=== PATIENT | male | born 1990 | race Caucasian/White ===

== ENCOUNTER 2016-07-31 09:48 | Emergency (ER) | payer OTHER ==
[2016-07-31] MEDS ORDERED: CETIRIZINE HCL10 M1 PO (09:55)
[2016-07-31] MEDS ORDERED: IPRATROPIUM BRO15 M1 (09:56)
[2016-07-31] MEDS ORDERED: FLONASE ALLERG9.9 ML (09:56)
[2016-07-31] MEDS ORDERED: SUDAFED30 M2 PO (09:57)
[2016-07-31 10:33] LABS: URINE BILIRUBIN NEGATIVE (NEG); URINE BLOOD NEGATIVE (NEG); URINE GLUCOSE (UA) NEGATIVE (NEG); URINE KETONE NEGATIVE (NEG); URINE LEUKOCYTE ESTERASE NEGATIVE (NEG); URINE NITRITE NEGATIVE (NEG); URINE PROTEIN NEGATIVE (NEG); URINE SPECIFIC GRAVITY 1.005 (1.003-1.030)
[2016-07-31 10:35] LABS: URINE APPEARANCE CLEAR; URINE COLOR YELLOW
[2016-07-31] MEDS ORDERED: CYCLOBENZAPRINE5 M1 PO (11:32)
[2016-07-31] MEDS ORDERED: NORCO 5-325 TA1 EACH PO (11:32)
[2016-07-31] MEDS ORDERED: PREDNISONE20 M1 PO (11:32)
== END 2016-07-31 11:47 ==
LOC: EDMED 09:48
PROVIDERS: Emergency Medicine
DX: M54.5 Low back pain (principal)
CPT/HCPCS: J1885; J2270